=== PATIENT | male | born 1955 | race Asian ===

== ENCOUNTER 2018-04-11 14:28 | Emergency (ER) | payer SELFPAY ==
[~2018-04-11] VITALS: Ht 170.2 cm; Wt 68.0 kg
[2018-04-11] MEDS ORDERED: Isovue-300 100ml vial INJ PRN (14:45)
[2018-04-11 15:01] VITALS: BP 162/100
[2018-04-11 15:28] LABS: BASOPHILS % (AUTO) 0.2 % (0.0-2.0); EOSINOPHILS % (AUTO) 0.1 % (0.0-3.0); HEMATOCRIT 44.9 % (42.0-52.0); HEMOGLOBIN 15.5 G/DL (14.2-18.0); LYMPHOCYTES % (AUTO) 10.9 % (20.0-45.0); MEAN CORPUSCULAR VOLUME 93 FL (80-99); MONOCYTES % (AUTO) 3.9 % (1.0-10.0); NEUTROPHILS % (AUTO) 84.9 % (45.0-75.0); PLATELET COUNT 255 K/UL (150-450); RED BLOOD COUNT 4.83 M/UL (4.70-6.10); RED CELL DISTRIBUTION WIDTH 10.5 % (11.6-14.8); WHITE BLOOD COUNT 11.8 K/UL (4.8-10.8)
[2018-04-11 15:31] LABS: APPEARANCE,URINE CLEAR; BILIRUBIN, URINE NEGATIVE (NEGATIVE); GLUCOSE, URINE (UA) NEGATIVE (NEGATIVE); KETONES,URINE 3+ (NEGATIVE); LEUKOCYTE ESTERASE ,URINE NEGATIVE (NEGATIVE); NITRITE,URINE NEGATIVE (NEGATIVE); PH,URINE 5 (4.5-8.0); PROTEIN,URINE 2+ (NEGATIVE); UROBILINOGEN,URINE NORMAL MG/DL (0.0-1.0)
[2018-04-11 15:32] LABS: COLOR,URINE YELLOW
[2018-04-11 15:41] LABS: ANION GAP 11 mmol/L (5-15); BLOOD UREA NITROGEN 29 mg/dL (7-18); CALCIUM 9.3 MG/DL (8.5-10.1); CARBON DIOXIDE 26 MMOL/L (21-32); CHLORIDE 103 MMOL/L (98-107); CREATININE 1.3 MG/DL (0.55-1.30); POTASSIUM 3.4 MMOL/L (3.5-5.1); SODIUM 140 MMOL/L (136-145)
[2018-04-11 15:44] LABS: ALANINE AMINOTRANSFERASE 23 U/L (12-78); ALBUMIN 4.4 G/DL (3.4-5.0); ALBUMIN/GLOBULIN RATIO 1.3 (1.0-2.7); ALKALINE PHOSPHATASE 62 U/L (46-116); ASPARTATE AMINO TRANSFERASE 26 U/L (15-37); BILIRUBIN,TOTAL 0.8 MG/DL (0.2-1.0)
--- NOTE | 2018-04-11 16:42 | Diagnostic Imaging Report ---
Clinical Indication: Left-sided abdominal pain Technique: No oral contrast utilized, per emergency room physician request IV administration nonionic contrast. Venous phase spiral acquisition obtained through the abdomen and pelvis. Multiplanar reconstructions were generated. Total dose length product 599.79 mGycm. CTDIvol(s) 11.02 mGy. Dose reduction achieved using automated exposure control Comparison: none Findings: There is a 2 mm calculus in the distal left ureter. This is located approximately 2 cm proximal to the ureterovesical junction. There is mild proximal hydroureter, minimal left hydronephrosis, and considerable infiltration of the perinephric and periureteral fat. No definite intrarenal calculi are demonstrated on either side. No right hydronephrosis or hydroureter demonstrated. The right kidney does demonstrate 2 upper pole cysts as well as subcentimeter low-attenuation lesions which are too small to characterize. No focal parenchymal abnormality is seen on the left. At least 4 calculi are seen dependently within the bladder lumen, largest measuring 8 mm diameter. No bladder wall thickening is evident. The prostate is mildly enlarged and slightly heterogeneous. The liver demonstrates a cyst in segment 5 as well as scattered subcentimeter low-attenuation lesions. A calcification is seen in segment 5. The gallbladder and bile ducts are unremarkable. The pancreas, spleen, adrenals are unremarkable. No retroperitoneal or mesenteric mass or adenopathy. No pelvic mass or adenopathy. The appendix is normal. No evidence of diverticulosis or diverticulitis. No small bowel distention. No free or loculated intraperitoneal air or fluid is demonstrated. The included lung bases demonstrate posterior dependent atelectatic changes. There is a tiny fat-containing Bochdalek hernia on the left. The bones demonstrate degenerative spondylosis changes. Impression: Positive for 2 mm distal left ureteral calculus, approximately 2 cm proximal to the ureterovesical junction. This results in mild hydronephrosis and hydroureter, and considerable infiltration of the perinephric and periureteral fat At least 4 bladder calculi, largest measuring 8 mm diameter Prostatomegaly Hepatic cysts. Subcentimeter low-attenuation liver lesions too small to characterize, most likely benign cysts or bile hamartomas. No further follow-up necessary 2 right renal cysts. Subcentimeter low-attenuation right renal lesions, too small to characterize. No further follow-up necessary Other findings as noted, including degenerative spondylosis, small left-sided fat-containing Bochdalek hernia, posterior dependent pulmonary atelectatic changes, evidence of old granulomatous disease within the liver The CT scanner at [facility] is accredited by the [employer] and the scans are performed using protocols designed to limit radiation exposure to as low as reasonably achievable to attain images of sufficient resolution adequate for diagnostic evaluation.
[2018-04-11] MEDS ORDERED: Ketorolac 30mg Inj IV ONE (18:00)
--- NOTE | 2018-04-11 18:05 | Emergency Room Report ---
History of Present Illness General Chief Complaint: Abdominal Pain Source: Patient Present Illness HPI This patient states that earlier today he developed severe pain in his left abdomen. He states that the pain has worsened over the day today. This was to the point where he had to leave work for severe and uncontrolled pain. He denies dysuria or hematuria. He denies nausea or vomiting. He denies fever or chills. He denies chest pain or shortness of breath. He has no other complaints. Allergies: Coded Allergies: No Known Allergies (Unverified , 04/11/18) Patient History Past Medical History: none Social History: Denies: smoking, alcohol use, drug use Reviewed Nursing Documentation: PMH: Agreed; PSxH: Agreed Review of Systems All Other Systems: negative except mentioned in HPI Physical Exam Vital Signs Date Time Temp Pulse Resp B/P (MAP) Pulse Ox O2 Delivery O2 Flow Rate FiO2 04/11/18 14:30 98.2 76 18 171/99 95 Room Air 98.2 Sp02 EP Interpretation: reviewed, normal General Appearance: no apparent distress, alert, GCS 15, non-toxic Head: normocephalic, atraumatic Eyes: bilateral eye normal inspection, bilateral eye PERRL ENT: hearing grossly normal, normal pharynx, no angioedema, normal voice Neck: full range of motion, supple/symm/no masses Respiratory: chest non-tender, lungs clear, normal breath sounds, no respiratory distress, no retraction, no accessory muscle use, speaking full sentences Cardiovascular #1: regular rate, rhythm, no edema Gastrointestinal: normal bowel sounds, soft, non-distended, no guarding, no rebound, tenderness - TTP in the LLQ Rectal: deferred Musculoskeletal: back normal, gait/station normal, normal range of motion, non- tender Neurologic: alert, oriented x3, responsive, motor strength/tone normal, sensory intact, speech normal Psychiatric: judgement/insight normal, memory normal, mood/affect normal, no suicidal/homicidal ideation Skin: normal color, no rash, warm/dry, well hydrated Medical Decision Making Diagnostic Impression: Primary Impression: Urolithiasis ER Course This patient underwent CT for left lower quadrant abdominal pain. He is found to have multiple urolithiasis in his bladder. He also has a 2 mm urolithiasis at the left UVJ. This is likely the past spontaneously. The patient has had significant relief in his symptoms. I suspect he has passed the largest stones at this time. I will give the patient pain control and Flomax. The patient is given close return precautions and follow-up instructions. Laboratory Tests Test 04/11/18 14:56 White Blood Count 11.8 K/UL (4.8-10.8) H Red Blood Count 4.83 M/UL (4.70-6.10) Hemoglobin 15.5 G/DL (14.2-18.0) Hematocrit 44.9 % (42.0-52.0) Mean Corpuscular Volume 93 FL (80-99) Mean Corpuscular Hemoglobin 32.0 PG (27.0-31.0) H Mean Corpuscular Hemoglobin Concent 34.4 G/DL (32.0-36.0) Red Cell Distribution Width 10.5 % (11.6-14.8) L Platelet Count 255 K/UL (150-450) Mean Platelet Volume 5.6 FL (6.5-10.1) L Neutrophils (%) (Auto) 84.9 % (45.0-75.0) H Lymphocytes (%) (Auto) 10.9 % (20.0-45.0) L Monocytes (%) (Auto) 3.9 % (1.0-10.0) Eosinophils (%) (Auto) 0.1 % (0.0-3.0) Basophils (%) (Auto) 0.2 % (0.0-2.0) Urine Color Yellow Urine Appearance Clear Urine pH 5 (4.5-8.0) Urine Specific [place] 1.030 (1.005-1.035) Urine Protein 2+ (NEGATIVE) H Urine Glucose (UA) Negative (NEGATIVE) Urine Ketones 3+ (NEGATIVE) H Urine Occult Blood 2+ (NEGATIVE) H Urine Nitrite Negative (NEGATIVE) Urine Bilirubin Negative (NEGATIVE) Urine Urobilinogen Normal MG/DL (0.0-1.0) Urine Leukocyte Esterase Negative (NEGATIVE) Urine RBC 5-10 /HPF (0 - 0) H Urine WBC 0-2 /HPF (0 - 0) Urine Squamous Epithelial Cells Occasional /LPF Urine Bacteria Few /HPF (NONE) Urine Mucus Few /LPF (NONE/OCC) H Sodium Level 140 MMOL/L (136-145) Potassium Level 3.4 MMOL/L (3.5-5.1) L Chloride Level 103 MMOL/L (98-107) Carbon Dioxide Level 26 MMOL/L (21-32) Anion Gap 11 mmol/L (5-15) Blood Urea Nitrogen 29 mg/dL (7-18) H Creatinine 1.3 MG/DL (0.55-1.30) Estimate Glomerular Filtration Rate 55.8 mL/min (>60) Glucose Level 113 MG/DL (74-106) H Calcium Level 9.3 MG/DL (8.5-10.1) Total Bilirubin 0.8 MG/DL (0.2-1.0) Aspartate Amino Transferase (AST) 26 U/L (15-37) Alanine Aminotransferase (ALT) 23 U/L (12-78) Alkaline Phosphatase 62 U/L (46-116) Total Protein 7.8 G/DL (6.4-8.2) Albumin 4.4 G/DL (3.4-5.0) Globulin 3.4 g/dL Albumin/Globulin Ratio 1.3 (1.0-2.7) Lipase 120 U/L (73-393) CT/MRI/US Diagnostic Results CT/MRI/US Diagnostic Results : Imaging Test Ordered: CT abd/pelvis Impression Impression: Positive for 2 mm distal left ureteral calculus, approximately 2 cm proximal to the ureterovesical junction. This results in mild hydronephrosis and hydroureter, and considerable infiltration of the perinephric and periureteral fat At least 4 bladder calculi, largest measuring 8 mm diameter Prostatomegaly Hepatic cysts. Subcentimeter low-attenuation liver lesions too small to characterize, most likely benign cysts or bile hamartomas. No further follow-up necessary 2 right renal cysts. Subcentimeter low-attenuation right renal lesions, too small to characterize. No further follow-up necessary Other findings as noted, including degenerative spondylosis, small left-sided fat-containing Bochdalek hernia, posterior dependent pulmonary atelectatic changes, evidence of old granulomatous disease within the liver Last Vital Signs Date Time Temp Pulse Resp B/P (MAP) Pulse Ox O2 Delivery O2 Flow Rate FiO2 04/11/18 15:01 98.5 70 22 162/100 94 Room Air 98.5 Status: improved Disposition: HOME, SELF-CARE Condition: Improved Scripts No Active Prescriptions or Reported Meds Referrals: NOT CHOSEN IPA/MD,REFERRING (PCP) Shweta Saab DO Apr 11, 2018 18:05
[2018-04-11] MEDS ORDERED: IBUPROFEN800 MG ORAL (18:28)
[2018-04-11] MEDS ORDERED: TAMSULOSIN HCL0.4 MG ORAL (18:28)
[2018-04-11] MEDS ORDERED: NORCO 5-325 TA1 EACH ORAL (18:28)
[2018-04-11 18:50] VITALS: BP 142/91
== END 2018-04-11 18:52 | disposition home or self-care (01) ==
LOC: EDSEX 14:28 → EMR 15:03
DX: R10.9 Unspecified abdominal pain (principal); N13.2 Hydronephrosis with renal and ureteral calculous obstruction; N21.0 Calculus in bladder; N40.0 Benign prostatic hyperplasia without lower urinary tract symptoms
CPT/HCPCS: 36415; 74177; 80053; 81003; 83690; 85025; 96361; 96374; 99284; J1885; Q9967